=== PATIENT | female | born 1935 | race Native Hawaiian/Other Pacific Islander ===

== ENCOUNTER 2016-09-18 15:23 | Outpatient (CLI) | payer OTHER ==
[~2016-09-18 15:23] MED LIST: ASA LO-DOSE81 MG PO; CELEBREX200 MG PO; CELEXA10 MG PO; CIPRO500 MG PO; LOSA50TA8 PO; LOVASTATIN40 MG PO; OMEPRAZOLE20 M1 PO; RANI150T78 PO; TOVIAZ 8MG8 MG PO
[2016-09-18 16:16] LABS: PLATELET COUNT 261 K/uL (152-353)
[2016-09-18 17:06] LABS: POTASSIUM 4.7 mmol/L (3.6-5.2)
== END 2016-09-18 19:11 | disposition home or self-care (01) ==
LOC: EDBD 15:23 → LAB 15:23
PROVIDERS: Nurse Practitioner Family
DX: I10 Essential (primary) hypertension (principal); E78.4 Other hyperlipidemia; Z79.899 Other long term (current) drug therapy; Z51.81 Encounter for therapeutic drug level monitoring
CPT/HCPCS: 36415; 80053; 80061; 83036; 84439; 84443; 85027

== ENCOUNTER 2017-04-09 10:02 | Outpatient (CLI) | payer OTHER | END 2017-04-09 11:05 | disposition home or self-care (01) | LOC: MAMMO 10:02 | DX: Z12.31 Encounter for screening mammogram for malignant neoplasm of breast (principal) ==

== ENCOUNTER 2017-04-16 13:47 | Outpatient (CLI) | payer OTHER ==
[2017-04-16 14:22] LABS: PLATELET COUNT 238 K/uL (152-353)
[2017-04-16 15:00] LABS: POTASSIUM 4.6 mmol/L (3.6-5.2)
== END 2017-04-16 19:26 | disposition home or self-care (01) ==
LOC: LAB 13:47
PROVIDERS: Nurse Practitioner Family
DX: I10 Essential (primary) hypertension (principal); E78.4 Other hyperlipidemia; D64.89 Other specified anemias; E66.8 Other obesity; Z79.899 Other long term (current) drug therapy; Z51.81 Encounter for therapeutic drug level monitoring
CPT/HCPCS: 80053; 80061; 83036; 84436; 84443; 85027

== ENCOUNTER 2017-05-29 09:32 | Outpatient (CLI) | payer OTHER | END 2017-05-29 19:22 | disposition home or self-care (01) | LOC: LABW 09:32 | DX: D64.9 Anemia, unspecified (principal); N39.0 Urinary tract infection, site not specified; B96.1 Klebsiella pneumoniae [K. pneumoniae] as the cause of diseases classified elsewhere | CPT/HCPCS: 81000; 82272; 87077; 87086; 87088; 87186 ==

== ENCOUNTER 2017-12-12 09:55 | Inpatient (IN) | payer OTHER ==
[~2017-12-12] VITALS: Ht 167.6 cm; Wt 99.1 kg
[2017-12-12] VITALS (16 sets, daily range): BP systolic 133–177; BP diastolic 63–80; TEMP 98–99.7; Ht 167.6 cm; Wt 99.1 kg
[2017-12-12 11:15] LABS: PLATELET COUNT 208 K/uL (152-353)
[2017-12-12 11:19] LABS: POTASSIUM 4.4 mmol/L (3.6-5.2); SODIUM 136 mmol/L (136-145)
[2017-12-12] MEDS ORDERED: EQ NATURAL LAX8.6 MG PO (14:46)
[2017-12-12] MEDS ORDERED: OXYB5TAB56 PO (14:49)
[2017-12-12] MEDS ORDERED: CITA20TA2 PO (14:52)
[2017-12-13] VITALS (13 sets, daily range): BP systolic 142–169; BP diastolic 67–83; TEMP 98.4–99.1
[2017-12-13 08:00] LABS: PLATELET COUNT 195 K/uL (152-353)
[2017-12-13 08:04] LABS: POTASSIUM 3.9 mmol/L (3.6-5.2)
[2017-12-14] VITALS (11 sets, daily range): BP systolic 105–153; BP diastolic 55–92; TEMP 97.6–99.3
[2017-12-14 08:30] LABS: PLATELET COUNT 201 K/uL (152-353)
[2017-12-14 09:05] LABS: POTASSIUM 4.3 mmol/L (3.6-5.2)
[2017-12-15 00:15] VITALS: BP 141/52; TEMP 98.1
[2017-12-15 04:38] VITALS: BP 153/67; TEMP 98.2
[2017-12-15 04:59] LABS: PLATELET COUNT 223 K/uL (152-353)
[2017-12-15 05:34] LABS: POTASSIUM 4.3 mmol/L (3.6-5.2)
[2017-12-15 07:55] VITALS: BP 146/67; TEMP 98.4
== END 2017-12-15 15:30 | disposition home or self-care (01) | DRG 312 ==
LOC: ED 09:55 → ICU 13:12 → MED/SURG 12-14 14:50
PROVIDERS: ADMIT Specialist
DX: R55 Syncope and collapse (principal); S59.811A Other specified injuries right forearm, initial encounter; I10 Essential (primary) hypertension; I25.10 Atherosclerotic heart disease of native coronary artery without angina pectoris; E78.4 Other hyperlipidemia; K21.9 Gastro-esophageal reflux disease without esophagitis; K27.9 Peptic ulcer, site unspecified, unspecified as acute or chronic, without hemorrhage or perforation; M15.8 Other polyosteoarthritis; Z85.42 Personal history of malignant neoplasm of other parts of uterus; R94.31 Abnormal electrocardiogram [ECG] [EKG]; Z91.81 History of falling; W18.39XA Other fall on same level, initial encounter; Y93.89 Activity, other specified; Y92.89 Other specified places as the place of occurrence of the external cause; Y99.8 Other external cause status; S69.82XA Other specified injuries of left wrist, hand and finger(s), initial encounter; S69.81XA Other specified injuries of right wrist, hand and finger(s), initial encounter
CPT/HCPCS: 36415; 80048; 80053; 81000; 82533; 82550; 82553; 82607; 83735; 84100; 84484; 85027; 85379; 86618; 93005; 93306; 96365; 96372; 96375; 99284; A9540; A9567; J1650; J1720; J3411; J3475; J3490

== ENCOUNTER 2017-12-22 07:04 | Outpatient (CLI) | payer OTHER ==
[~2017-12-22] VITALS: Ht 167.6 cm; Wt 100.2 kg
[~2017-12-22 07:04] MED LIST changes: +CITA20TA2 PO; +EQ NATURAL LAX8.6 MG PO; +OXYB5TAB56 PO
== END 2017-12-22 22:46 | disposition home or self-care (01) ==
LOC: NM 07:04
DX: R55 Syncope and collapse (principal)
CPT/HCPCS: A9500; J2785

== ENCOUNTER 2018-04-12 13:09 | Outpatient (CLI) | payer OTHER | END 2018-04-12 20:00 | disposition home or self-care (01) | LOC: MAMMO 13:09 | DX: Z12.31 Encounter for screening mammogram for malignant neoplasm of breast (principal) ==

== ENCOUNTER 2018-11-03 08:05 | Outpatient (CLI) | payer OTHER ==
[2018-11-03 09:04] LABS: PLATELET COUNT 197 K/uL (152-353)
[2018-11-03 09:11] LABS: POTASSIUM 4.5 mmol/L (3.6-5.2)
== END 2018-11-03 20:08 | disposition home or self-care (01) ==
LOC: LABW 08:05
PROVIDERS: Nurse Practitioner
DX: I10 Essential (primary) hypertension (principal); E78.2 Mixed hyperlipidemia; R60.0 Localized edema; E53.8 Deficiency of other specified B group vitamins; D50.8 Other iron deficiency anemias
CPT/HCPCS: 36415; 80053; 80061; 82043; 82570; 82607; 82746; 83540; 83550; 83735; 85027

== ENCOUNTER 2018-11-08 10:52 | Outpatient (CLI) | payer OTHER | END 2018-11-08 19:27 | disposition home or self-care (01) | LOC: LABW 10:52 | DX: D64.9 Anemia, unspecified (principal); E53.8 Deficiency of other specified B group vitamins | CPT/HCPCS: 36415; 82607; 82746; 83540; 83550 ==

== ENCOUNTER 2018-12-21 14:09 | Outpatient (CLI) | payer OTHER ==
[2018-12-21 15:09] LABS: PLATELET COUNT 230 K/uL (152-353)
[2018-12-21 15:30] LABS: POTASSIUM 3.5 mmol/L (3.6-5.2)
== END 2018-12-21 22:57 | disposition home or self-care (01) ==
LOC: LABW 14:09
PROVIDERS: Nurse Practitioner Family
DX: D64.9 Anemia, unspecified (principal)
CPT/HCPCS: 36415; 80053; 82728; 83540; 83550; 85027

== ENCOUNTER 2018-12-22 07:38 | Outpatient (CLI) | payer OTHER | END 2018-12-22 23:38 | disposition home or self-care (01) | LOC: LAB 07:38 | DX: D64.89 Other specified anemias (principal) | CPT/HCPCS: 82272 ==

== ENCOUNTER 2018-12-23 07:46 | Outpatient (CLI) | payer OTHER | END 2018-12-23 19:40 | disposition home or self-care (01) | LOC: LAB 07:46 | DX: D64.89 Other specified anemias (principal) | CPT/HCPCS: 82272 ==

== ENCOUNTER 2018-12-24 10:19 | Outpatient (CLI) | payer OTHER | END 2018-12-24 19:13 | disposition home or self-care (01) | LOC: LAB 10:19 | DX: D64.89 Other specified anemias (principal) | CPT/HCPCS: 82272 ==

== ENCOUNTER 2019-02-16 09:50 | Outpatient (CLI) | payer OTHER ==
[2019-02-16 10:40] LABS: PLATELET COUNT 214 K/uL (152-353)
[2019-02-16 10:58] LABS: POTASSIUM 4.1 mmol/L (3.6-5.2)
== END 2019-02-16 23:45 | disposition home or self-care (01) ==
LOC: LABW 09:50
PROVIDERS: Internal Medicine Hematology & Oncology
DX: D64.9 Anemia, unspecified (principal)
CPT/HCPCS: 36415; 80053; 82728; 83540; 83550; 85027

== ENCOUNTER 2019-05-02 09:49 | Outpatient (CLI) | payer OTHER | END 2019-05-02 19:56 | disposition home or self-care (01) | LOC: MAMMO 09:49 | DX: Z12.31 Encounter for screening mammogram for malignant neoplasm of breast (principal) ==

== ENCOUNTER 2019-05-17 10:18 | Outpatient (CLI) | payer OTHER ==
[2019-05-17 11:05] LABS: PLATELET COUNT 235 K/uL (152-353)
[2019-05-17 11:18] LABS: POTASSIUM 3.9 mmol/L (3.6-5.2)
== END 2019-05-17 20:27 | disposition home or self-care (01) ==
LOC: LABW 10:18
PROVIDERS: Internal Medicine Hematology & Oncology
DX: D50.8 Other iron deficiency anemias (principal); I10 Essential (primary) hypertension; E78.2 Mixed hyperlipidemia; R60.0 Localized edema
CPT/HCPCS: 36415; 80053; 80061; 82043; 82570; 82728; 83540; 83550; 85027

== ENCOUNTER 2019-08-19 08:25 | Outpatient (CLI) | payer OTHER ==
[2019-08-19 10:03] LABS: PLATELET COUNT 214 K/uL (152-353)
== END 2019-08-19 21:16 | disposition home or self-care (01) ==
LOC: LABW 08:25
PROVIDERS: Nurse Practitioner Family
DX: D50.8 Other iron deficiency anemias (principal)
CPT/HCPCS: 36415; 80053; 82728; 83540; 83550; 85027

== ENCOUNTER 2020-03-23 08:08 | Outpatient (CLI) | payer OTHER ==
[2020-03-23 10:11] LABS: PLATELET COUNT 225 K/uL (152-353)
== END 2020-03-23 23:50 | disposition home or self-care (01) ==
LOC: LABW 08:08
PROVIDERS: Nurse Practitioner Family
DX: D50.8 Other iron deficiency anemias (principal)
CPT/HCPCS: 36415; 80053; 82607; 82728; 82746; 83540; 83550; 85027

== ENCOUNTER 2020-09-17 09:03 | Outpatient (CLI) | payer OTHER ==
[2020-09-17 09:33] LABS: PLATELET COUNT 215 K/uL (152-353)
[2020-09-17 10:04] LABS: POTASSIUM 3.9 mmol/L (3.6-5.2)
== END 2020-09-17 19:18 | disposition home or self-care (01) ==
LOC: LABW 09:03
PROVIDERS: ATTEND Internal Medicine Hematology & Oncology
DX: D50.8 Other iron deficiency anemias (principal)
CPT/HCPCS: 36415; 80053; 82607; 82728; 82746; 83540; 83550; 85027

== ENCOUNTER 2020-12-27 08:26 | Outpatient (CLI) | payer OTHER ==
[2021-01-10 16:00] LABS: POTASSIUM 4.3 mmol/L (3.6-5.2)
[2021-01-10 16:03] LABS: PLATELET COUNT 185 K/uL (152-353)
== END 2020-12-27 16:00 | disposition home or self-care (01) ==
LOC: LABW 08:26
PROVIDERS: ATTEND Nurse Practitioner Family
DX: D50.8 Other iron deficiency anemias (principal)
CPT/HCPCS: 36415; 80053; 82607; 82728; 82746; 83540; 83550; 85027

== ENCOUNTER 2022-06-14 10:55 | Emergency (ER) | payer OTHER | END 2022-06-14 15:05 | disposition home or self-care (01) | LOC: ED 10:55 | DX: S00.83XA Contusion of other part of head, initial encounter (principal); S40.022A Contusion of left upper arm, initial encounter; S50.02XA Contusion of left elbow, initial encounter; S80.02XA Contusion of left knee, initial encounter; S00.81XA Abrasion of other part of head, initial encounter; W01.198A Fall on same level from slipping, tripping and stumbling with subsequent striking against other object, initial encounter; Y92.096 Garden or yard of other non-institutional residence as the place of occurrence of the external cause | CPT/HCPCS: 99283 ==

== ENCOUNTER 2022-10-09 14:09 | Emergency (ER) | payer OTHER ==
[~2022-10-09] VITALS: Ht 167.6 cm; Wt 102.1 kg
[2022-10-09 14:11] VITALS: TEMP 99
[2022-10-09] MEDS ORDERED: MEMA5TAB PO (14:27)
[2022-10-09 17:16] VITALS: BP 166/69
== END 2022-10-09 17:17 | disposition home or self-care (01) ==
LOC: ED 14:09
DX: N39.0 Urinary tract infection, site not specified (principal); S02.612A Fracture of condylar process of left mandible, initial encounter for closed fracture; W01.198A Fall on same level from slipping, tripping and stumbling with subsequent striking against other object, initial encounter; Y92.096 Garden or yard of other non-institutional residence as the place of occurrence of the external cause
CPT/HCPCS: 81000; 87088; 90471; 90715; 93005; 99284

== ENCOUNTER 2022-11-12 06:50 | Emergency (ER) | payer OTHER ==
[~2022-11-12] VITALS: Ht 167.6 cm; Wt 102.1 kg
[~2022-11-12 06:50] MED LIST changes: +MEMA5TAB PO
[2022-11-12 07:00] VITALS: TEMP 98.5
[2022-11-12 09:16] LABS: PLATELET COUNT 176 K/uL (152-353)
[2022-11-12 09:32] LABS: POTASSIUM 3.6 mmol/L (3.6-5.2)
[2022-11-12 12:53] VITALS: BP 114/53
[2022-11-12] MEDS ORDERED: MOBIC15 MG PO (19:40)
[2022-11-12] MEDS ORDERED: INTEGRA PLUS PO (19:40)
[2022-11-12] MEDS ORDERED: PSYL0.52C PO (19:41)
[2022-11-21] MEDS ORDERED: ACET-206 PO (13:10)
[2022-11-21] MEDS ORDERED: ATOR20TA2 PO (13:10)
[2022-11-21] MEDS ORDERED: MAGNSUS68 PO (13:11)
[2022-11-21] MEDS ORDERED: CLINDAMYCIN HC150 MG PO (13:11)
[2022-11-21] MEDS ORDERED: MEMA5TAB PO (13:11)
[2022-11-21] MEDS ORDERED: ONDANSETRON4 MG/2 M1 INJ (13:12)
[2022-11-21] MEDS ORDERED: PANTOPRAZOLE 40MG TA PO (13:12)
[2022-11-21] MEDS ORDERED: OXYB5TAB56 PO (13:12)
[2022-11-21] MEDS ORDERED: BLOOMIS59 PO (13:13)
[2022-11-21] MEDS ORDERED: QUET25TA2 PO (13:14)
[2022-11-21] MEDS ORDERED: METAMUCIL0.36 GM PO (13:14)
[2022-11-21] MEDS ORDERED: SERT50TA PO (13:15)
== END 2022-11-12 12:54 | disposition still patient (30) ==
LOC: ED 06:50
PROVIDERS: Emergency Medicine Emergency Medical Services
DX: S09.90XA Unspecified injury of head, initial encounter (principal); W01.0XXA Fall on same level from slipping, tripping and stumbling without subsequent striking against object, initial encounter
CPT/HCPCS: 80053; 81002; 84484; 85027; 87040; 87077; 87185; 87186; 87205; 93005; 96361; 96365; 96375; 99285; J0696; J1885

== ENCOUNTER 2022-12-12 13:36 | Outpatient (CLI) | payer OTHER ==
[~2022-12-12 13:36] MED LIST changes: +ACET-206 PO; +ATOR20TA2 PO; +BLOOMIS59 PO; +CLINDAMYCIN HC150 MG PO; +INTEGRA PLUS PO; +MAGNSUS68 PO; +METAMUCIL0.36 GM PO; +MOBIC15 MG PO; +ONDANSETRON4 MG/2 M1 INJ; +PANTOPRAZOLE 40MG TA PO; +PSYL0.52C PO; +QUET25TA2 PO; +SERT50TA PO
== END 2022-12-12 19:02 | disposition home or self-care (01) ==
LOC: LAB 13:36
PROVIDERS: ATTEND Internal Medicine
DX: N39.0 Urinary tract infection, site not specified (principal)
CPT/HCPCS: 81002